=== PATIENT | male | born 1985 | race Caucasian/White ===

== ENCOUNTER 2025-04-15 00:11 | Emergency (ER) | payer SELFPAY ==
[2025-04-15 00:18] VITALS: BP 142/83; PULSE 74; RESP 18; TEMP 36.8; O2SAT 100; BMI 26.4
--- NOTE | 2025-04-15 00:28 | ED_ITS ---
HPI - Wound/Laceration General Chief Complaint: Wound/Laceration Stated Complaint: RT hand - wrist wound Time Seen by Provider: 04/15/25 00:20 Source: patient Mode of arrival: Ambulatory History of Present Illness HPI narrative: Patient presents after sustaining a laceration to the hand with a whittling knife. The patient has not yet cleaned the wound. There is no report of numbness or tingling, and the patient is able to move their fingers without difficulty. No mention of overlying erythema or significant induration at the site of injury. ROS: Denies numbness or tingling. No difficulty with finger movement. No overlyi ng erythema or significant induration noted. Patient History Smoking Status: Former smoker Alcohol type: hard liquor Exam Narrative Exam Narrative: General: Well appearing, well nourished, in no distress. Skin: Laceration to the hand palmar aspect of the left wrist. No overlying erythema or significant induration. Head: Normocephalic, atraumatic HEENT: Conjunctiva clear, EOM intact, PERRL, Mucous membranes moist. Neck: Supple, normal ROM Heart: Radial pulses present. Regular rate and rhythm, no murmur or gallop or rubs Lungs: Clear to auscultation. No rales rhonchi or wheezes. Abdomen: Soft and nontender. Bowel sounds normal. No mass or hernia Back: Spine normal without deformity or tenderness, no CVA tenderness Extremities: Full range of motion of fingers. No evidence of neurovascular compromise. No deformities, edema. Peripheral pulses intact Neurologic: CN 2-12 normal. Normal sensation and motor exam. Psychiatric: Oriented X3. Normal mood and affect. Initial Vital Signs Initial Vital Signs: Vital Signs Temperature 98.3 F 04/15/25 00:18 Pulse Rate 74 04/15/25 00:18 Respiratory Rate 18 04/15/25 00:18 Blood Pressure 142/83 H 04/15/25 00:18 Pulse Oximetry 100 04/15/25 00:18 Oxygen Delivery Method Room Air 04/15/25 00:18 Procedures Laceration Repair Laceration 1: Time of procedure: 00:33 Size (cm): 1 Description: linear Pre-repair: irrigated extensively Skin layer closed with: dermabond Course Vital Signs Vital signs: Vital Signs - 8 hr 04/15/25 00:18 Temperature 98.3 F Pulse Rate 74 Respiratory Rate 18 Blood Pressure 142/83 H Pulse Oximetry 100 Oxygen Delivery Method Room Air MDM - Wound/Laceration MDM Narrative Medical decision making narrative: INITIAL EVALUATION AND PLAN: - Clean wound thoroughly - Apply skin glue to laceration - Discharge after wound care Differential Diagnoses: Hand laceration, Tendon injury, Foreign body in wound, Infection risk, Neurovascular compromise Complexity of Problems Addressed: 1. Problem-specific factors: The patient presents with a laceration to the hand caused by a whittling knife. There is no evidence of neurovascular compromise, numbness, tingling, or difficulty with finger movement. The wound is uncomplicated, with no signs of infection such as erythema or induration. 2. Management factors: The plan involves cleaning the wound and applying skin glue, which indicates straightforward management without systemic symptoms or significant risk of morbidity. 3. External information sources and historians: Information was obtained directly from the patient, who is a reliable historian. Wound was repaired as documented above, we discussed return precautions the patient was discharged from the emergency department considered imaging however given very small wound very low suspicion for contamination, patient states that knife did not break trip lower suspicion for fracture or retained foreign body Discharge Plan Departure Patient Disposition: Home Clinical Impression: Laceration Instructions: DI for Puncture Wound Activity Restrictions/Additional Instructions: Please return to the emergency department if you have worsening symptoms such as significant bleeding from the wound site redness foul-smelling drainage fevers chills or other concerning symptoms Stand Alone Forms: Patient Portal/API/Survey
== END 2025-04-15 00:37 | disposition home or self-care (01) ==
PROVIDERS: Emergency Provider Emergency Medicine
DX: S61.411A Laceration without foreign body of right hand, initial encounter (principal); W26.0XXA Contact with knife, initial encounter
CPT/HCPCS: 12001; 99282